=== PATIENT | male | born 1955 | race Caucasian/White ===

== ENCOUNTER → 2016-12-19 | Outpatient (CLI) | payer OTHER ==
--- NOTE | 2016-12-19 18:21 | US ---
EXAMINATION TYPE: US venous doppler duplex LE RT DATE OF EXAM: 12/19/2016 6:08 PM COMPARISON: NONE CLINICAL HISTORY: R Lower extremity pain M79.604. SIDE PERFORMED: Right VESSELS IMAGED: External Iliac Vein (EIV) Common Femoral Vein Deep Femoral Vein Greater Saphenous Vein * Femoral Vein Popliteal Vein Small Saphenous Vein * Proximal Calf Veins (* superficial vessels) TECHNOLOGIST IMPRESSION: Right Leg: Negative for DVT IMPRESSION: Normal exam. No evidence of deep venous thrombosis in the right leg.
== END ==
LOC: RADUSMAIN 17:39
PROVIDERS: ATTEND Family Medicine
DX: M79.604 Pain in right leg (principal)

== ENCOUNTER → 2017-04-17 | Outpatient (CLI) | payer OTHER ==
--- NOTE | 2017-04-17 23:06 | MR ---
EXAMINATION TYPE: MR knee RT wo con DATE OF EXAM: 04/17/2017 COMPARISON: NONE HISTORY: Rt knee pain TECHNIQUE: Multiplanar, multisequence imaging of the right knee is performed without IV contrast. FINDINGS: There is increased signal in a large area of the medial femoral condyle on the T2-weighted images. Th ere is a mild to moderate knee joint effusion. The anterior and posterior cruciate ligaments are inta ct. The collateral ligaments are intact. There is narrowing of the medial joint space. There is mild increased signal within the lateral meniscus. There is some horizontal and vertical increased signal in the posterior horn medial meniscus. There is horizontal increased signal within the anterior horn of the medial meniscus. IMPRESSION: Knee joint effusion. 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 There is a 3 cm bone bruise involving medial femoral condyle. There is 8 x 4 mm area of decreased signal in the subchondral medial femoral condyle consistent with degenerative cyst formation and osteosclerosis. Horizontal tears of the anterior and posterior horns of the medial meniscus. Small intrasubstance tea rs of the lateral meniscus.
== END | disposition home or self-care (01) ==
LOC: RADMRIMAIN 20:57
PROVIDERS: ATTEND Family Medicine
DX: S83.241A Other tear of medial meniscus, current injury, right knee, initial encounter (principal); S83.281A Other tear of lateral meniscus, current injury, right knee, initial encounter; S80.01XA Contusion of right knee, initial encounter; M17.11 Unilateral primary osteoarthritis, right knee

== ENCOUNTER → 2018-09-10 | Outpatient (CLI) | payer OTHER ==
--- NOTE | 2018-09-10 23:36 | MR ---
EXAMINATION TYPE: MR ankle LT wo con DATE OF EXAM: 09/10/2018 COMPARISON: None HISTORY: Lt ankle pain, osteoarthritis x 3 years Standard multiplanar, multisequence MRI departmental protocol Multiplanar, multisequence images of the left ankle were acquired. FINDINGS: Achilles tendon is intact. Plantar fascia appears intact. There is a mild ankle joint effus ion. The medial and lateral flexor tendons of the ankle appear intact. Subtalar joint is intact. Ankl e mortise is anatomic. The collateral ligaments appear intact. I see no focal bone destruction. There is no evidence for fracture. IMPRESSION: Mild to moderate ankle joint effusion consistent with nonspecific synovitis. No fracture. No signific ant joint space narrowing. No evidence of ligament or tendon tear.
== END ==
LOC: RADMRIMAIN 14:52
PROVIDERS: ATTEND Orthopaedic Surgery
DX: M25.472 Effusion, left ankle (principal)

== ENCOUNTER → 2021-06-09 | Outpatient (CLI) | payer MEDICAID ==
[2021-06-09 19:03] LABS: HCT 45.3 % (39.6-50.0); HGB 15.1 g/dL (13.0-17.0); MCH 31.4 pg (27.0-32.0); MCHC 33.3 g/dL (32.0-37.0); MCV 94.2 fL (80.0-97.0); Mean Platelet Volume 10.7 fL (9.5-12.2); Platelet Count 232 X 10*3/uL (140-440); RBC 4.81 X 10*6/uL (4.40-5.60); RDW 13.2 % (11.5-14.5); WBC 7.28 X 10*3/uL (4.50-10.00)
[2021-06-09 22:31] LABS: African American GFR (CKD) 104.2 (60.0-200.0); Albumin 4.2 g/dL (3.80-4.90); Albumin/Globulin Ratio 1.45 (1.60-3.17); Anion Gap 11.7 mmol/L (4.00-12.00); BUN/Creat Ratio 21.11 Ratio (12.00-20.00); Calcium 9.1 mg/dL (8.7-10.3); Carbon Dioxide 20.3 mmol/L (21.6-31.8); Chol/HDL Ratio 3.67; Globulin 2.9 g/dL (1.6-3.3); Non-African American GFR(CKD) 89.9 (60.0-200.0); Potassium 4.5 mmol/L (3.5-5.5); Total Bilirubin 1.4 mg/dL (0.2-1.2); Total Protein 7.1 g/dL (6.2-8.2)
[2021-06-09 22:40] LABS: Prostate Specific Antigen 0.5 ng/mL (0.0-4.5)
== END | disposition home or self-care (01) ==
LOC: LABWHC1 11:51
PROVIDERS: ATTEND Family Medicine
DX: Z00.01 Encounter for general adult medical examination with abnormal findings (principal)
CPT/HCPCS: 36415; 80053; 80061; 84153; 85027

== ENCOUNTER 2021-09-24 08:30 | Day surgery (SDC) | payer MEDICAID, MEDICARE ==
[2021-09-22 12:27] VITALS: BMI 36.9
[~2021-09-24 08:30] MED LIST: LACTATED RINGERS 1,000 ML IV SCH
[2021-09-24 09:16] VITALS: RESP 16; TEMP 97.5
[2021-09-24] MEDS ORDERED: PROPOFOL 10 MG/ML 20 ML VIAL IV ONE (10:09)
--- NOTE | 2021-09-24 10:32 | P.PCN ---
Date of Procedure: 09/24/21 Procedure(s) Performed: BRIEF HISTORY: Patient is a 66-year-old pleasant white male scheduled for an elective colonoscopy as a part of evaluation of prior history of colon polyps. His last colonoscopy was 5 years ago. PROCEDURE PERFORMED: Colonoscopy. PREOPERATIVE DIAGNOSIS: History of colon polyps. IV sedation per Anesthesia. PROCEDURE: After informed consent was obtained, the patient, was brought into the endoscopy unit. IV sedation was administered by Anesthesia under continuous monitoring. Digital rectal examination was normal. Initially the Olympus CF-160 flexible video colonoscope was then inserted in the rectum, gradually advanced into the cecum without any difficulty. Careful examination was performed as the scope was gradually being withdrawn. Ileocecal valve and the appendiceal orifice were visualized and appeared normal. Prep was excellent. Mucosa of the cecum, ascending colon, transverse colon, descending colon, sigmoid colon, and rectum appeared normal. Retroflexion was performed in the rectum and monitor hemorrhoids were seen. The patient tolerated the procedure well. IMPRESSION: Normal-appearing colon from rectum to cecum with no evidence of colorectal neoplasia. RECOMMENDATIONS: Findings of this examination were discussed with the patient as well as his family. He was advised to have a repeat screening colonoscopy in 10 years..
[2021-09-24 11:00] VITALS: BP 113/75; PULSE 64
== END 2021-09-24 11:07 | disposition home or self-care (01) ==
LOC: ORWHC2ENDO 08:30
PROVIDERS: ATTEND Internal Medicine Gastroenterology
DX: K64.9 Unspecified hemorrhoids (principal); Z12.11 Encounter for screening for malignant neoplasm of colon; Z86.010 Personal history of colon polyps; I10 Essential (primary) hypertension; Z79.1 Long term (current) use of non-steroidal anti-inflammatories (NSAID); Z79.899 Other long term (current) drug therapy
CPT/HCPCS: J2704; G0105; 45378